=== PATIENT | female | born 1975 | race Caucasian/White ===

== ENCOUNTER 2022-10-28 13:09 | Outpatient (CLI) | payer MEDICARE, MEDICAID | END 2022-10-28 23:59 | disposition home or self-care (01) | LOC: RAD 13:09 | PROVIDERS: ATTEND Internal Medicine | DX: I69.391 Dysphagia following cerebral infarction (principal); I69.322 Dysarthria following cerebral infarction; R13.12 Dysphagia, oropharyngeal phase; R47.1 Dysarthria and anarthria; R47.81 Slurred speech | CPT/HCPCS: 74230 ==

== ENCOUNTER 2023-03-18 11:35 | Day surgery (SDC) | payer MEDICARE, MEDICAID ==
[~2023-03-18] VITALS: Ht 167.6 cm; Wt 60.0 kg
[2023-03-18 11:48] VITALS: BP 119/85; PULSE 69; RESP 2
[2023-03-18] MEDS ORDERED: BACL20TA7 PO (12:10)
[2023-03-18] MEDS ORDERED: MECL-231 PO (12:11)
[2023-03-18] MEDS ORDERED: ASPI-1265 PO (12:12)
[2023-03-18] MEDS ORDERED: FOLI1TAB27 PO (12:13)
[2023-03-18] MEDS ORDERED: MECO10005 PO (12:13)
[2023-03-18] MEDS ORDERED: DULO-31 PO (12:14)
[2023-03-18] MEDS ORDERED: TRAZ-251 PO (12:15)
[2023-03-18] MEDS ORDERED: MELA10TA2 PO (12:15)
[2023-03-18] MEDS ORDERED: PREG50CA65 PO (12:16)
[2023-03-18] MEDS ORDERED: ZOLP5TAB2 PO (12:17)
[2023-03-18] MEDS ORDERED: ATOR40TA71 PO (12:18)
[2023-03-18] MEDS ORDERED: diphenhydrAMINE 50 mg/ml inj ONE (14:21)
[2023-03-18] MEDS ORDERED: fentaNYL/PF 50MCG/1 ML 2ML syringe ONE (14:21)
[2023-03-18] MEDS ORDERED: MIDAZolam 1 MG/ML 5ML VIAL ONE (14:21)
[2023-03-18 14:42] VITALS: BP 147/96; PULSE 72; RESP 12; O2SAT 100
[2023-03-18 14:52] VITALS: BP 147/90; PULSE 68; RESP 11; O2SAT 99
[2023-03-18 15:02] VITALS: BP 151/89; PULSE 73; RESP 14; O2SAT 96
[2023-03-18 15:12] VITALS: BP 150/68; PULSE 76; RESP 19; O2SAT 96
== END 2023-03-18 15:35 | disposition home or self-care (01) ==
LOC: GI LAB 11:35
PROVIDERS: ATTEND Internal Medicine Gastroenterology
DX: R13.10 Dysphagia, unspecified (principal); K29.40 Chronic atrophic gastritis without bleeding; Z86.73 Personal history of transient ischemic attack (TIA), and cerebral infarction without residual deficits; Z87.891 Personal history of nicotine dependence; Z79.82 Long term (current) use of aspirin; Z79.899 Other long term (current) drug therapy; Z90.710 Acquired absence of both cervix and uterus; Z98.891 History of uterine scar from previous surgery
CPT/HCPCS: 43239; 43763; J1200; J2250; J3010; J7030; Z7512; 43246; 43247; 88305; 99152; A4620; C1889